=== PATIENT | female | born 1970 | race Hispanic/Latino ===

== ENCOUNTER 2024-01-25 12:50 | Emergency (ER) | payer BC ==
[2024-01-25] MEDS ORDERED: Lidocaine 4% Patch ONE (15:27)
[2024-01-25] MEDS ORDERED: Cyclobenzaprine 10 MG TAB ONE (15:27)
[2024-01-25] MEDS ORDERED: Ketorolac Tromethamine 30 MG (1 mL) VIAL ONE (15:27)
[2024-01-25] MEDS ORDERED: Meclizine HCl 25 MG TAB ONE (15:35)
== END 2024-01-25 18:09 | disposition home or self-care (01) ==
LOC: ERS 12:50
DX: M54.2 Cervicalgia (principal); R42 Dizziness and giddiness
CPT/HCPCS: 72040; 96372; 99283; J1885